=== PATIENT | male | born 1975 | race Hispanic/Latino ===

== ENCOUNTER 2020-03-14 13:50 | Emergency (ER) | payer BC ==
[~2020-03-14] VITALS: Ht 185.4 cm; Wt 195.0 kg
--- OUTSIDE RECORDS SUMMARY | 2020-03-14 13:53 | XMS REPORT ---
Author Author [facility] Organization [facility] Address Unknown Phone Unavailable Care Team Providers Care Funnel Setter Name Role Phone Unavailable Unavailable Payers Payer Name Policy Type Policy Number Effective Date Expiration D ate Problems This patient has no known problems. Allergies, Adverse Reactions, Alerts Allergy Name Allergy Type Status Severity Reaction(s) Onset Date Inacti ve Date Treating Clinician Comments No Known Allergies DA Active U 2017-10-01 00:00:00 Medications This patient has no known medications.
--- OUTSIDE RECORDS SUMMARY | 2020-03-14 13:53 | XMS REPORT | Summary of Care ---
Author Author [facility] Organization [facility] Address Unknown Phone Unavailable Care Team Providers Care Animal Health Technician Name Role Phone PCP Unavailable Reason for Visit * Reason Comments Hypogonadism Encounter Details Care Team Description Date Type Department Esequiel Brito MD [address] [facility] [address] [place] [address] Hypogonadism 08/14/2019 Office Visit [facility] Urology [address] , [facility] [address] [place] [address] Allergies No Known Allergiesdocumented as of this encounter (statuses as of 08/14/2019) Medications End Date Status Medication Sig Dispensed Refills Start Date Active anastrozole (ARIMIDEX) 1 Take 1 Tab by 30 Tab 2 MG tablet mouth every 7 9 days. Active Syringe/Needle, Disp, Use as 50 Each 0 03/0 (SYRINGE 3CC/21GX1") 21G directed with 9 X 1" 3 ML MISC testosterone cypionate Active metformin (GLUCOPHAGE) Take 2 tabs 120 Tab 5 500 MG tablet by mouth 9 twice daily with meals Active phentermine (ADIPEX-P) Take 1 Tab by 30 Tab 5 1 37.5 MG tablet mouth every 9 morning (before breakfast). Active tadalafil (CIALIS) 20 MG Take 1 Tab by 30 Tab 1 tablet mouth as 9 needed for Erectile Dysfunction. Active testosterone cypionate Inject 200 mg 12 mL 1 1 (DEPOTESTOTERONE into the 9 CYPIONATE) 200 MG/ML muscle every injection 7 days. 08/14/2019 Discontinued sildenafil citrate Take by mouth 10 Tab 2 08/09 (VIAGRA) 100 MG tablet as directed. 3 08/14/2019 Discontinued tadalafil (CIALIS) 20 MG Take by mouth 12 Tab 5 tablet as directed. 3 08/14/2019 Discontinued sildenafil citrate Take by mouth 3 Tab 0 01/11 (VIAGRA) 100 MG tablet as directed. 9 08/14/2019 Discontinued metformin (GLUCOPHAGE) Take 1 tab by 120 Tab 5 0 500 MG tablet mouth twice 9 daily with meals for 2 weeks, then 2 tabs twice daily with meals thereafter. 08/14/2019 Discontinued phentermine (ADIPEX-P) Take 1 Tab by 30 Tab 5 0 37.5 MG tablet mouth every 9 morning (before breakfast). 08/14/2019 Discontinued testosterone cypionate Inject 200 mg 12 mL 1 0 (DEPOTESTOTERONE into the 9 CYPIONATE) 200 MG/ML muscle every injection 7 days. documented as of this encounter (statuses as of 08/14/2019) Active Problems Problem Noted Date Male hypogonadism 07/03/2013 Encounter for long-term (current) use of other medica tions 07/03/2013 documented as of this encounter (statuses as of 08/14/2019) Social History Date Tobacco Use Types Packs/Day Years Used Current Some Day Smoker Smokeless Tobacco: Current User Drinks/Week oz/Week Comments Alcohol Use Yes Alcohol Habits Answer Date Recorded How often do you have a drink containing alcohol? 2-4 time s a month 01/11/2019 How many drinks containing alcohol do you have on No t asked a typical day when you are drinking? How often do you have six or more drinks on one Not asked occasion? Sex Assigned at Date Recorded Not on file Industry Job Start Date Occupation Not on file Not on file Not on file Travel End Travel History Travel Start No recent travel history available. documented as of this encounter Last Filed Vital Signs Reading Time Taken Comments Vital Sign 134/80 08/14/2019 2:43 PM CDT Blood Pressure 92 08/14/2019 2:43 PM CDT Pulse - - Temperature - - Respiratory Rate - - Oxygen Saturation - - Inhaled Oxygen Concentration 181.4 kg (400 lb) 08/14/2019 2:43 PM CDT Weight 185.4 cm (6' 1") 08/14/2019 2:43 PM CDT Height 52.77 08/14/2019 2:43 PM CDT Body Mass Index documented in this encounter Progress Notes * Esequiel Brito MD - 08/14/2019 2:20 PM CDT I saw and evaluated the patient and agree with the resident's/fellow's findings as written. 44 y.o. male who presents to me with with symptoms concerning for hypogonadism. Hypogonadism: - Current regimen: - Previous symptoms: low energy, decreased libido, increased fatigue, and inabil ity to exercise regularly. He used to take testosterone from the gym many years ago. - Libido is up and down, no breast development, nipple sensitivity, minimal bear d acne - Has 4 children, , does not want to preserve fertility - No FHx phlebotomy director Has not donated since last visit - Hct was 53.5 On metformin and phentermine for weight loss, interested in lipoC Erectile Dysfunction: - Cialis 25 ODT ([facility]) M-HypoG * Jack Thornton MD - 08/14/2019 2:20 PM CDT Last seen 01/2019 Plan: - m-hypoG + PSA - Restart TC 1cc QW, Anastrazole 1mg (Insurance) - Metformin, Phentermine - Viagra 110 PRN ([facility]) [facility] Jimmie Ang is a 44 y.o. male who presents to me with with symptoms concerning for hypogonadism. Hypogonadism: - Current regimen: - Previous symptoms: low energy, decreased libido, increased fatigue, and inabil ity to exercise regularly. He used to take testosterone from the gym many years ago. - Libido is up and down, no breast development, nipple sensitivity, minimal bear d acne - Has 4 children, , does not want to preserve fertility - No FHx phlebotomy director Has not donated since last visit - Hct was 53.5 On metformin and phentermine for weight loss, interested in lipoC Erectile Dysfunction: - Cialis 25 ODT ([facility]) Component Latest Ref Rng & Units 01/11/2019 CHOLESTEROL <200 MG/DL 210 (H) TRIGLYCERIDES <150 MG/DL 177 (H) HDL >39 MG/DL 61 LDL CHOLESTEROL CALCULATED <100 MG/DL 114 (H) LDL/HDL RATIO, SERUM <3.55 RATIO 1.86 TESTOSTERONE LEVEL 300 - 890 NG/DL 499 SEX HORMONE BINDING GLOBULIN 16.5 - 55.9 NMOL/L 27.4 CALC FREE TESTOSTERONE 47.0 - 244.0 PG/ML 116.2 ESTRADIOL <=60.7 PG/ML 40.7 SOMATOMEDIN-C 61 - 177 NG/ML 101 HEMATOCRIT 37.0 - 49.0 % 53.5 (H) DHEA-S 82 - 455 UG/DL 80 (L) PROLACTIN 4.0 - 26.0 NG/ML 23.8 No past medical history on file. No past surgical history on file. Medications: Current Outpatient Medications: anastrozole (ARIMIDEX) 1 MG tablet, Take 1 Tab by mouth every 7 days., Disp : 30 Tab, Rfl: 2 metformin (GLUCOPHAGE) 500 MG tablet, Take 1 tab by mouth twice daily with meals for 2 weeks, then 2 tabs twice daily with meals thereafter., Disp: 120 Tab , Rfl: 5 phentermine (ADIPEX-P) 37.5 MG tablet, Take 1 Tab by mouth every morning (b efore breakfast)., Disp: 30 Tab, Rfl: 5 sildenafil citrate (VIAGRA) 100 MG tablet, Take by mouth as directed., Disp : 3 Tab, Rfl: 0 sildenafil citrate (VIAGRA) 100 MG tablet, Take by mouth as directed., Disp : 10 Tab, Rfl: 2 Syringe/Needle, Disp, (SYRINGE 3CC/21GX1") 21G X 1" 3 ML MISC, Use as direc romulo with testosterone cypionate, Disp: 50 Each, Rfl: 0 tadalafil (CIALIS) 20 MG tablet, Take by mouth as directed., Disp: 12 Tab, Rfl: 5 testosterone cypionate (DEPOTESTOTERONE CYPIONATE) 200 MG/ML injection, Inj ect 200 mg into the muscle every 7 days., Disp: 12 mL, Rfl: 1 Outpatient Medications Prior to Visit Medication Sig Dispense Refill anastrozole Take 1 Tab by mouth every 7 days. 30 Tab 2 metformin Take 1 tab by mouth twice daily with meals for 2 weeks, then 2 tab s twice daily with meals thereafter. 120 Tab 5 phentermine Take 1 Tab by mouth every morning (before breakfast). 30 Tab 5 sildenafil citrate Take by mouth as directed. 3 Tab 0 sildenafil citrate Take by mouth as directed. 10 Tab 2 SYRINGE 3CC/21GX1" Use as directed with testosterone cypionate 50 Each 0 tadalafil Take by mouth as directed. 12 Tab 5 testosterone cypionate Inject 200 mg into the muscle every 7 days. 12 mL 1 No facility-administered medications prior to visit. Social History Socioeconomic History Marital status: Spouse name: Not on file Number of children: Not on file Years of education: Not on file Highest education level: Not on file Occupational History Not on file Social Needs Financial resource strain: Not on file Food insecurity: Worry: Not on file Inability: Not on file Transportation needs: Medical: Not on file Non-medical: Not on file Tobacco Use Smoking status: Current Some Day Smoker Smokeless tobacco: Current User Substance and Sexual Activity Alcohol use: Yes Frequency: 2-4 times a month Drug use: Not on file Sexual activity: Not on file Lifestyle Physical activity: Days per week: Not on file Minutes per session: Not on file Stress: Not on file Relationships Social connections: Talks on phone: Not on file Gets together: Not on file Attends uatsdin service: Not on file Active member of club or organization: Not on file Attends meetings of clubs or organizations: Not on file Relationship status: Not on file Intimate partner violence: Fear of current or ex partner: Not on file Emotionally abused: Not on file Physically abused: Not on file Forced sexual activity: Not on file Other Topics Concerns: Not on file Social History Narrative Not on file Social History Occupational History Not on file family history is not on file. No Known Allergies Physical Exam: Vitals: 08/14/19 1443 BP: 134/80 BP Location: left arm Patient Position: Sitting Cuff Size: large Pulse: 92 Weight: (!) 400 lb (181.4 kg) Height: 6' 1" (1.854 m) GENERAL: Well developed, well nourished, in no acute distress. Obese HEAD: Normocephalic and atraumatic CHEST Regular respiratory rate ABDOMEN: Abdomen soft and non-tender without masses, BACK: No CVAT EXTREMITIES: No clubbing, cyanosis, edema, or deformity SKIN: Intact without lesions or rashes NEURO: VERA well. Patient alert and oriented x3. PSYCH: Alert and cooperative; normal mood and affect; normal attention span and con centration Most Recent Labs: No results found for this or any previous visit (from the past 4032 hour(s)). No diagnosis found. Plan: Hypogonadism - m-hypoG + PSA - TC 1cc QW, Anastrazole 1mg QW --> BIW Weight management - Metformin, Phentermine ED - Cialis 20 mg (GoodRx) Needs to donate blood, check Hct today. Order placed for phlebotomy documented in this encounter Plan of Treatment Care Team Description Date Type Specialty Katiuska Tirado, IDVYA [address] [place] [address] 2020 Office Visit Urology Order Schedule Name Type Priority Associated Diag noses Expected: 08/28/2019 (Approximate), Expi res: 09/14/2019 TESTOSTERONE-TOTAL(URO Lab Routine Male hy pogonadism DEPT) Screening for endocrine, metabolic and immunity disorder Screening for cardiovascular condition Encounter for long-term (current) use of medications Expected: 08/28/2019 (Approximate), Expi res: 09/14/2019 SHBG([facility] DEPT) Lab Routine Male hypogonadi sm Screening for endocrine, metabolic and immunity disorder Screening for cardiovascular condition Encounter for long-term (current) use of medications Expected: 08/28/2019 (Approximate), Expi res: 09/14/2019 ESTRADIOL([facility] DEPT) Lab Routine Male hypog onadism Screening for endocrine, metabolic and immunity disorder Screening for cardiovascular condition Encounter for long-term (current) use of medications Expected: 08/28/2019 (Approximate), Expi res: 09/14/2019 PROLACTIN([facility] DEPT) Lab Routine Male hypog onadism Screening for endocrine, metabolic and immunity disorder Screening for cardiovascular condition Encounter for long-term (current) use of medications Expected: 08/28/2019 (Approximate), Expi res: 09/14/2019 DHEA SULFATE([facility] DEPT) Lab Routine Male hy pogonadism Screening for endocrine, metabolic and immunity disorder Screening for cardiovascular condition Encounter for long-term (current) use of medications Ordered: 08/14/2019 HEMATOCRIT Lab Routine Male hypogonadi sm Screening for endocrine, metabolic and immunity disorder Screening for cardiovascular condition Encounter for long-term (current) use of medications Ordered: 08/14/2019 LIPID PANEL Lab Routine Male hypogonadi sm Screening for endocrine, metabolic and immunity disorder Screening for cardiovascular condition Encounter for long-term (current) use of medications Health Maintenance Due Date Last Done Comments TETANUS SHOT (ADULT) 1990 BMI FOLLOW UP PLAN 1993 HIV SCREENING 1993 FLU VACCINE > 6 MONTHS 06/13/2019 documented as of this encounter Results Not on filedocumented in this encounter Visit Diagnoses Diagnosis Male hypogonadism - Primary Other testicular hypofunction Screening for endocrine, metabolic and immunity disorder Screening for cardiovascular condition Screening for other and unspecified car diovascular conditions Encounter for long-term (current) use o f medications Encounter for long-term (current) use o f other medications documented in this encounter Insurance Type Payer Benefit Subscriber ID Effective Phone Address Plan / Dates Group PPO BLUE CROSS BLUE SHIELD OUT OF xxxxxxxxxxxxxxx 2017- [facility] BCBS Present [id number] - PPO - [place] [id number] documented as of this encounter
[2020-03-14] MEDS ORDERED: SODIUM CHLORIDE 0.9% 1000ML 1,000 ML IV STA (14:22)
[2020-03-14] MEDS ORDERED: PANTOPRAZOLE 40 MG 10ML VIAL IV NR (14:22)
[2020-03-14] MEDS ORDERED: KETOROLAC TROMETHAMINE 30 MG/ML VIAL IV NR (14:30)
[2020-03-14] MEDS ORDERED: ONDANSETRON HCL INJ 2MG/ML 2ML 2 MG/ML VIAL IV NR (14:30)
[2020-03-14] MEDS ORDERED: DIATRIZOATE MEGL/DIATRIZOA SOD 30 ML BTL PO ONE (14:46)
[2020-03-14 14:58] LABS: BASOPHILS # (AUTO) 0.1 (0.0-0.1); BASOPHILS % 0.7 % (0.0-1.0); EOSINOPHILS # (AUTO) 0.1 (0.0-0.4); EOSINOPHILS % 1.3 % (0.0-6.0); HEMATOCRIT 55.8 % (38.2-49.6); HEMOGLOBIN 18.2 g/dL (14.0-18.0); LYMPHOCYTES # (AUTO) 1.2 (1.0-3.2); LYMPHOCYTES % 12.8 % (18.0-39.1); MEAN CORPUSCULAR HEMOGLOBIN 28.5 pg (28-32); MEAN CORPUSCULAR HGB CONC 32.6 g/dL (31-35); MEAN CORPUSCULAR VOLUME 87.3 fL (81-99); MONOCYTES % 10.3 % (4.4-11.3); NEUTROPHILS # (AUTO) 6.8 (2.1-6.9); NEUTROPHILS % 73.8 % (38.7-80.0); PLATELET COUNT 221 x10e3/uL (140-360); RED BLOOD COUNT 6.39 x10e6/uL (4.3-5.7)
[2020-03-14 15:18] LABS: ALANINE AMINOTRANSFERASE 37 IU/L (0-55); ALBUMIN 3.8 g/dL (3.5-5.0); ALBUMIN/GLOBULIN RATIO 1.1 (0.8-2.0); ALKALINE PHOSPHATASE 59 IU/L (40-150); AMYLASE 87 U/L (25-125); ANION GAP 14.3 mmol/L (8-16); BLOOD UREA NITROGEN 20 mg/dL (7-26); BUN/CREATININE RATIO 19 (6-25); CALCIUM 9.3 mg/dL (8.4-10.2); CARBON DIOXIDE 24 mmol/L (22-29); CHLORIDE 104 mmol/L (98-107); CREATINE KINASE 246 IU/L (30-200); CREATININE, SERUM 1.06 mg/dL (0.72-1.25); EST GLOMERULAR FILTRATION RATE > 60 ML/MIN (60-); GLUCOSE 108 mg/dL (74-118); LIPASE 47 U/L (8-78); POTASSIUM 4.3 mmol/L (3.5-5.1); SODIUM 138 mmol/L (136-145)
[2020-03-14 15:44] LABS: CLARITY,URINE CLEAR (CLEAR); COLOR,URINE YELLOW (YELLOW); LEUKOCYTE ESTERASE ,URINE NEGATIVE (NEGATIVE)
[2020-03-14 15:45] LABS: BILIRUBIN,URINE NEGATIVE (NEGATIVE); KETONES,URINE NEGATIVE (NEGATIVE); NITRITE,URINE NEGATIVE (NEGATIVE); PROTEIN,URINE DIPSTICK 1+ (NEGATIVE); URINE UROBILINOGEN 0.2 mg/dL (0.2 - 1)
[2020-03-14 16:08] LABS: WBC,URINE (MAN) 0-5 /HPF (0-5)
[2020-03-14 16:09] LABS: BACTERIA,URINE FEW /HPF; CALCIUM OXALATE CRYSTALS,UR MANY (FEW); EPITHELIAL CELLS,URINE FEW /LPF
--- NOTE | 2020-03-14 17:17 | Diagnostic Imaging Report ---
EXAMINATION: CT of the abdomen and pelvis with contrast. TECHNIQUE: Spiral CT images of the abdomen and pelvis were performed from the lung bases to the lesser trochanters after the intravenous administration of 100 cc of Isovue 370 and the oral administration of dilute Gastrografin. Coronal and sagittal reformatted images were obtained. COMPARISON: None. CLINICAL HISTORY:Abdominal pain in mid and lower abdomen since today, history of diverticulitis DISCUSSION: ABDOMEN/PELVIS: LOWER THORAX:Linear opacity in the lingula may reflect subsegmental atelectasis or scarring. Lung bases are otherwise clear. HEPATOBILIARY: Liver size in the upper limit of normal to borderline enlarged, measuring 16.4 cm in the right mid clavicular line. Normal contour. No focal lesions. No intra or extrahepatic biliary ductal dilation. GALLBLADDER: Multiple layering gallstones in the dependent portion of the gallbladder lumen. No wall thickening. SPLEEN: No splenomegaly. PANCREAS: No focal masses or ductal dilatation. ADRENALS: No adrenal nodules. KIDNEYS/URETERS: No hydronephrosis, stones, or solid mass lesions. PELVIC ORGANS/BLADDER: Bladder and prostate are unremarkable. PERITONEUM/RETROPERITONEUM: No free air or fluid. LYMPH NODES: No intra-abdominal, retroperitoneal, pelvic or inguinal lymphadenopathy. VESSELS: The celiac trunk,superior and inferior mesenteric and bilateral renal arteries are patent The portal, superior mesenteric and splenic veins are patent. GI TRACT: No bowel dilation or evidence of obstruction. Descending and sigmoid colon diverticulosis. There is an approximately 5 cm segment of the distal descending/proximal sigmoid colon which shows mild wall thickening, and mild surrounding fat stranding (best visualized on coronal image 55). No foci of extraluminal air or adjacent well-defined enhancing fluid collections. Rest of the bowel shows no wall thickening. BONES AND SOFT TISSUE: No aggressive lytic or suspicious focal sclerotic lesions. Degenerated discs in the lower lumbosacral spine with associated osteophytosis. Small fat-containing writing well hernia. IMPRESSION: 1. Findings consistent with distal descending/proximal sigmoid uncomplicated diverticulitis. No evidence of perforation or adjacent abscess formation. 2. Cholelithiasis without CT evidence of cholecystitis. Signed by: Dr. Bay Brown M.D. on 03/14/2020 5:13 PM
[2020-03-14] MEDS ORDERED: IOPAMIDOL 370 MG/ML 200 ML INFUS..BTL INJ ONE (17:28)
[2020-03-14] MEDS ORDERED: SODIUM CHLORIDE 0.9% 50ML 50 ML ONE (17:28)
[2020-03-14] MEDS ORDERED: METHYLPREDNISOLONE SOD SUCC 125 MG/2ML VIAL IV STA (17:47)
[2020-03-14] MEDS ORDERED: PIPER-TAZ 3.375 GM 50 ML IV ONE (18:00)
[2020-03-14 18:21] VITALS: BP 115/67
== END 2020-03-14 18:37 | disposition home or self-care (01) ==
LOC: ER 13:50
DX: R10.84 Generalized abdominal pain (principal); R11.0 Nausea; K80.20 Calculus of gallbladder without cholecystitis without obstruction; K57.12 Diverticulitis of small intestine without perforation or abscess without bleeding
CPT/HCPCS: 36415; 74177; 80053; 81001; 82150; 82550; 82553; 83690; 84484; 85025; 87086; 93005; 99284; C9113; J1885; J2405; J2543; J2930; J7030; Q9967

== ENCOUNTER → 2020-05-21 | Day surgery (SDC) | payer BC, OTHER ==
[~2020-05-21] MED LIST: ETOMIDATE 2 MG/ML 10 ML INJ IV ONE; LIDOCAINE HCL 2% LOCAL INJ 5 ML SDV VIAL INJ ONE; PROPOFOL IV EMULSION 10 MG/ML 20 ML VIAL ONE
[2020-05-21 07:45] VITALS: BP 130/86
== END | disposition home or self-care (01) ==
LOC: OR 05:42
PROVIDERS: ATTEND Internal Medicine Gastroenterology
DX: R19.7 Diarrhea, unspecified (principal); K62.1 Rectal polyp; K57.92 Diverticulitis of intestine, part unspecified, without perforation or abscess without bleeding; K64.8 Other hemorrhoids; Z71.3 Dietary counseling and surveillance; E66.01 Morbid (severe) obesity due to excess calories; G47.33 Obstructive sleep apnea (adult) (pediatric); B15.9 Hepatitis A without hepatic coma; F95.9 Tic disorder, unspecified; F32.9 Major depressive disorder, single episode, unspecified; Z01.812 Encounter for preprocedural laboratory examination; Z11.59 Encounter for screening for other viral diseases; Z68.43 Body mass index [BMI] 50.0-59.9, adult; Z87.891 Personal history of nicotine dependence
CPT/HCPCS: 45380; 45385; J2001; J2704; U0002

== ENCOUNTER 2020-08-11 11:46 | Emergency (ER) | payer BC, OTHER ==
[~2020-08-11] VITALS: Ht 185.4 cm; Wt 195.0 kg
[2020-08-11] MEDS ORDERED: LIDOCAINE 4% PATCH TP STA (12:02)
[2020-08-11] MEDS ORDERED: KETOROLAC TROMETHAMINE 30 MG/ML VIAL IV STA (12:02)
[2020-08-11] MEDS ORDERED: ACETAMINOPHEN 325 MG TAB PO ONE (12:15)
[2020-08-11 12:46] LABS: CLARITY,URINE CLEAR (CLEAR); COLOR,URINE YELLOW (YELLOW); LEUKOCYTE ESTERASE ,URINE NEGATIVE (NEGATIVE)
[2020-08-11 12:47] LABS: BACTERIA,URINE RARE /HPF; BILIRUBIN,URINE NEGATIVE (NEGATIVE); EPITHELIAL CELLS,URINE FEW /LPF; KETONES,URINE NEGATIVE (NEGATIVE); NITRITE,URINE NEGATIVE (NEGATIVE); PROTEIN,URINE DIPSTICK NEGATIVE (NEGATIVE); URINE UROBILINOGEN 0.2 mg/dL (0.2 - 1)
[2020-08-11 13:19] VITALS: BP 137/83
== END 2020-08-11 13:35 | disposition home or self-care (01) ==
LOC: ER 12:05
DX: M54.5 Low back pain (principal); X50.0XXA Overexertion from strenuous movement or load, initial encounter; Y93.B3 Activity, free weights; Y92.39 Other specified sports and athletic area as the place of occurrence of the external cause
CPT/HCPCS: 81001; 99283; J1885

== ENCOUNTER 2021-08-25 09:10 | Emergency (ER) | payer BC ==
[~2021-08-25] VITALS: Ht 185.4 cm; Wt 195.0 kg
[2021-08-25] MEDS ORDERED: SODIUM CHLORIDE 0.9% 1000ML 1,000 ML IV STA (09:29)
[2021-08-25] MEDS ORDERED: ONDANSETRON HCL INJ 2MG/ML 2ML 2 MG/ML VIAL IV PRN (09:30)
[2021-08-25 09:49] LABS: BASOPHILS # (AUTO) 0.1 (0.0-0.1); BASOPHILS % 0.6 % (0.0-1.0); EOSINOPHILS # (AUTO) 0.1 (0.0-0.4); EOSINOPHILS % 1.3 % (0.0-6.0); HEMATOCRIT 46.4 % (38.2-49.6); HEMOGLOBIN 15.4 g/dL (14.0-18.0); LYMPHOCYTES # (AUTO) 1.5 (1.0-3.2); LYMPHOCYTES % 15.4 % (18.0-39.1); MEAN CORPUSCULAR HEMOGLOBIN 29.1 pg (28-32); MEAN CORPUSCULAR HGB CONC 33.2 g/dL (31-35); MEAN CORPUSCULAR VOLUME 87.7 fL (81-99); MONOCYTES # (AUTO) 1.1 (0.2-0.8); MONOCYTES % 11.3 % (4.4-11.3); NEUTROPHILS # (AUTO) 6.7 (2.1-6.9); NEUTROPHILS % 70.8 % (38.7-80.0); PLATELET COUNT 227 x10e3/uL (140-360); RED BLOOD COUNT 5.29 x10e6/uL (4.3-5.7); RED CELL DISTRIBUTION WIDTH 14.2 % (11.7-14.4)
[2021-08-25 09:57] LABS: CLARITY,URINE CLEAR (CLEAR); COLOR,URINE YELLOW (YELLOW); LEUKOCYTE ESTERASE ,URINE NEGATIVE (NEGATIVE)
[2021-08-25 09:58] LABS: KETONES,URINE NEGATIVE (NEGATIVE); NITRITE,URINE NEGATIVE (NEGATIVE); PROTEIN,URINE DIPSTICK 1+ (NEGATIVE); URINE UROBILINOGEN 0.2 mg/dL (0.2 - 1)
[2021-08-25 10:03] LABS: ALBUMIN 3.8 g/dL (3.5-5.0); ALBUMIN/GLOBULIN RATIO 1.1 (0.8-2.0); CALCIUM 8.5 mg/dL (8.4-10.2); CREATININE, SERUM 0.98 mg/dL (0.72-1.25)
[2021-08-25 10:05] LABS: BACTERIA,URINE MODERATE /HPF; EPITHELIAL CELLS,URINE FEW /LPF
[2021-08-25] MEDS ORDERED: FENTANYL CITRATE/PF 100MCG/2 ML INJ IV ONE (10:15)
[2021-08-25] MEDS ORDERED: SODIUM CHLORIDE 0.9% 50ML 50 ML ONE (10:23)
[2021-08-25] MEDS ORDERED: DIATRIZOATE MEGL/DIATRIZOA SOD 30 ML BTL PO ONE (10:23)
[2021-08-25] MEDS ORDERED: IOPAMIDOL 370 MG/ML 200 ML INFUS..BTL INJ ONE (10:23)
[2021-08-25] MEDS ORDERED: AUGMENTIN 875-1 EACH PO (13:17)
[2021-08-25 13:31] VITALS: BP 125/54
== END 2021-08-25 13:33 | disposition home or self-care (01) ==
LOC: ER 09:29
DX: R10.32 Left lower quadrant pain (principal); K57.32 Diverticulitis of large intestine without perforation or abscess without bleeding; K80.20 Calculus of gallbladder without cholecystitis without obstruction
CPT/HCPCS: 36415; 74177; 80053; 81001; 83690; 85025; 87086; 99284; J2405; J3010; J7030; Q9967

== ENCOUNTER → 2021-10-20 | Outpatient (CLI) | payer BC ==
[~2021-10-20] MED LIST changes: +AUGMENTIN 875-1 EACH PO; -ETOMIDATE 2 MG/ML 10 ML INJ IV ONE; -LIDOCAINE HCL 2% LOCAL INJ 5 ML SDV VIAL INJ ONE; -PROPOFOL IV EMULSION 10 MG/ML 20 ML VIAL ONE
== END ==
LOC: RAD 10:57
PROVIDERS: ATTEND Family Medicine
DX: R60.0 Localized edema (principal); I89.0 Lymphedema, not elsewhere classified
CPT/HCPCS: 93970

== ENCOUNTER 2022-05-30 06:17 | Inpatient (IN) | payer BC ==
[2022-05-26 12:56] LABS: BASOPHILS # (AUTO) 0.1 (0.0-0.1); BASOPHILS % 0.8 % (0.0-1.0); EOSINOPHILS % 0.6 % (0.0-6.0); HEMATOCRIT 55.4 % (38.2-49.6); HEMOGLOBIN 18.2 g/dL (14.0-18.0); LYMPHOCYTES # (AUTO) 1.3 (1.0-3.2); LYMPHOCYTES % 19.6 % (18.0-39.1); MEAN CORPUSCULAR HEMOGLOBIN 27.5 pg (28-32); MEAN CORPUSCULAR HGB CONC 32.9 g/dL (31-35); MEAN CORPUSCULAR VOLUME 83.6 fL (81-99); MONOCYTES # (AUTO) 0.6 (0.2-0.8); MONOCYTES % 9.6 % (4.4-11.3); NEUTROPHILS # (AUTO) 4.5 (2.1-6.9); NEUTROPHILS % 68.8 % (38.7-80.0); PLATELET COUNT 196 x10e3/uL (140-360); RED BLOOD COUNT 6.63 x10e6/uL (4.3-5.7); RED CELL DISTRIBUTION WIDTH 17.8 % (11.7-14.4)
[~2022-05-30] VITALS: Ht 185.4 cm; Wt 197.8 kg
[~2022-05-30 06:17] MED LIST changes: +VENLAFAXINE HCL75 M1 PO
[2022-05-30] MEDS ORDERED: TRAZODONE HCL50 MG PO (07:02)
[2022-05-30] MEDS ORDERED: FIBRIN FROZEN 2 ML SPRAY.GEL TOP ONE (07:39)
[2022-05-30] MEDS ORDERED: BUPIVACAINE 0.25% 30ML SDV ONE (10:30)
[2022-05-30] MEDS ORDERED: SUGAMMADEX SODIUM 200 MG/2 ML VIAL IV ONE (11:15)
[2022-05-30] MEDS ORDERED: DEXAMETHASONE SOD PHOS INJ 4 MG/ML SDV IV PRN (11:45)
[2022-05-30] MEDS ORDERED: HYDROCODONE/APAP 7.5MG-325MG 1 EA TAB PO PRN (11:45)
[2022-05-30] MEDS ORDERED: KETOROLAC TROMETHAMINE 30 MG/ML VIAL ONE (11:55)
[2022-05-30] MEDS ORDERED: ROCURONIUM BROMIDE 10 MG/ML 5ML VIAL IV ONE (11:55)
[2022-05-30] MEDS ORDERED: SEVOFLURANE INHAL SOLN 250 ML PEN BTL ONE (11:55)
[2022-05-30] MEDS ORDERED: EPHEDRINE SULFATE INJ 50 MG/ML VIAL ONE (11:55)
[2022-05-30] MEDS ORDERED: POVIDONE IODINE 0.05% 0.05 % ML PO ONE (11:55)
[2022-05-30] MEDS ORDERED: DEXAMETHASONE SOD PHOS INJ 4 MG/ML SDV ONE (11:55)
[2022-05-30] MEDS ORDERED: ONDANSETRON HCL INJ 2MG/ML 2ML 2 MG/ML VIAL ONE (11:55)
[2022-05-30] MEDS ORDERED: PROPOFOL IV EMULSION 10 MG/ML 20 ML VIAL ONE (11:55)
[2022-05-30] MEDS ORDERED: LIDOCAINE HCL 2% LOCAL INJ 5 ML SDV VIAL INJ ONE (11:55)
[2022-05-30] MEDS: ONDANSETRON HCL INJ 2MG/ML 2ML 2 MG/ML VIAL IV PRN ×3 (12:06→22:55)
[2022-05-30] MEDS ORDERED: KETAMINE HCL INJ 50 MG/ML 10 ML VIAL ONE (12:16)
[2022-05-30] MEDS ORDERED: FENTANYL CITRATE/PF 100MCG/2 ML INJ ONE ×2 (12:16→12:18)
[2022-05-30] MEDS ORDERED: MIDAZOLAM HCL 2 MG/2 ML VIAL ONE (12:16)
[2022-05-30] MEDS ORDERED: METOCLOPRAMIDE HCL 10 MG/2ML VIAL ONE (12:18)
[2022-05-30 12:39] VITALS: BP 158/84
[2022-05-30 13:02] VITALS: BP 158/84
[2022-05-30 13:11] VITALS: BP 158/84
[2022-05-30] MEDS: SODIUM CHLORIDE 0.9% 1000ML 1,000 ML IV SCH (13:44)
[2022-05-30 16:00] VITALS: BP 138/87
[2022-05-30] MEDS: Morphine 2mg Syringe 2 MG/ML SYR IV PRN ×2 (18:19→22:55)
[2022-05-30 20:00] VITALS: BP 164/94
[2022-05-30] MEDS ORDERED: ENOXAPARIN SOD INJ 40 MG/0.4 ML SYR SC SCH (20:30)
[2022-05-30] MEDS ORDERED: TRAZODONE HCL 50 MG TAB PO PRN (21:25)
[2022-05-30 22:08] VITALS: BP 164/94
[2022-05-31 00:34] VITALS: BP 156/81
[2022-05-31] MEDS: SODIUM CHLORIDE 0.9% 1000ML 1,000 ML IV SCH (02:22)
[2022-05-31 04:00] VITALS: BP 156/94
[2022-05-31 07:22] LABS: BASOPHILS % 0.2 % (0.0-1.0); HEMATOCRIT 52.9 % (38.2-49.6); HEMOGLOBIN 17.1 g/dL (14.0-18.0); LYMPHOCYTES # (AUTO) 0.8 (1.0-3.2); LYMPHOCYTES % 7.5 % (18.0-39.1); MEAN CORPUSCULAR HGB CONC 32.3 g/dL (31-35); MEAN CORPUSCULAR VOLUME 83.4 fL (81-99); MONOCYTES # (AUTO) 0.9 (0.2-0.8); MONOCYTES % 8.8 % (4.4-11.3); NEUTROPHILS # (AUTO) 8.5 (2.1-6.9); NEUTROPHILS % 82.9 % (38.7-80.0); PLATELET COUNT 206 x10e3/uL (140-360); RED BLOOD COUNT 6.34 x10e6/uL (4.3-5.7); RED CELL DISTRIBUTION WIDTH 17.2 % (11.7-14.4)
[2022-05-31] MEDS: Morphine 2mg Syringe 2 MG/ML SYR IV PRN (07:24)
[2022-05-31] MEDS: ONDANSETRON HCL INJ 2MG/ML 2ML 2 MG/ML VIAL IV PRN (07:24)
[2022-05-31 07:45] VITALS: BP 159/95
[2022-05-31 07:50] LABS: ALBUMIN 3.7 g/dL (3.5-5.0); ALBUMIN/GLOBULIN RATIO 0.9 (0.8-2.0); ANION GAP 15.6 mmol/L (8-16); CALCIUM 8.2 mg/dL (8.4-10.2); CREATININE, SERUM 1.14 mg/dL (0.72-1.25); POTASSIUM 4.6 mmol/L (3.5-5.1)
[2022-05-31 08:12] LABS: PHOSPHORUS 2.3 MG/DL (2.3-4.7)
[2022-05-31 08:39] VITALS: BP 159/95
[2022-05-31] MEDS ORDERED: VENLAFAXINE HCL 75 MG CAPCR PO SCH (09:00)
== END 2022-05-31 10:10 | disposition home or self-care (01) | DRG 621 ==
LOC: OR 06:17 → PACU V 11:38 → MED/SURG3 12:39
PROVIDERS: ADMIT Internal Medicine; ATTEND Internal Medicine
PROC: 0DB64Z3 Excision of Stomach, Percutaneous Endoscopic Approach, Vertical (ICD-10-PCS; principal; 2022-05-30 09:53)
DX: E66.01 Morbid (severe) obesity due to excess calories (principal); Z68.43 Body mass index [BMI] 50.0-59.9, adult; G47.33 Obstructive sleep apnea (adult) (pediatric); D75.1 Secondary polycythemia; E29.1 Testicular hypofunction; I10 Essential (primary) hypertension; Z79.890 Hormone replacement therapy; Z20.822 Contact with and (suspected) exposure to COVID-19
CPT/HCPCS: 0223U; 36415; 80053; 83735; 84100; 85025; 93005; 96361; C1713; J0690; J1100; J1650; J1885; J2001; J2250; J2270; J2405; J2765; J3010; J7030